=== PATIENT | female | born 1930 | race Caucasian/White ===

== ENCOUNTER 2017-05-08 17:44 | Inpatient (IN) | payer MEDICARE, OTHER ==
[~2017-05-08] VITALS: Ht 144.8 cm; Wt 65.8 kg
[~2017-05-08 17:44] MED LIST: ALBU8.5H8 INH; AMIO200T57 PO; DABI150C PO; DOXA2TAB2 PO; ERGO500056 PO; GABA-532 PO; LISI-600 PO; LORA10TA65 PO; METO25TA6 PO; PANT-47 PO; QUELT PO; SACC250C9 PO; SIMV20TA PO
[2017-05-08 19:10] LABS: HEMATOCRIT 25.6 % (35.0-45.0); HEMOGLOBIN 8.4 g/dl (12.0-16.0); MEAN CORPUSCULAR HEMOGLOBIN 28.3 PG (27.0-31.0); MEAN CORPUSCULAR VOLUME 85.8 FL (78-98); MEAN PLATELET VOLUME 6.9 FL (7.4-10.4); PLATELET COUNT 211 X10'3 (140-440); RED BLOOD COUNT 2.98 X10'6 (4.20-5.60); WHITE BLOOD COUNT 5.9 X10'3 (4.5-11.0)
[2017-05-08 19:23] LABS: INR 3.4 INR; PARTIAL THROMBOPLASTIN TIME 66 SECONDS (22-32)
[2017-05-08 19:26] LABS: ANISOCYTOSIS 1+; PLATELET ESTIMATE NORMAL; TOTAL CELLS COUNTED 100
[2017-05-08 19:27] LABS: ELLIPTOCYTES FEW; POIKILOCYTOSIS FEW; TEAR DROP CELLS FEW
[2017-05-08 19:31] LABS: CLARITY,URINE CLEAR (Clear); COLOR,URINE YELLOW (Yellow); GLUCOSE, URINE NEGATIVE (Neg); KETONES,URINE NEGATIVE (Neg); LEUKOCYTE ESTERASE ,URINE NEGATIVE (Neg); NITRITES, URINE NEGATIVE (Neg); OCCULT BLOOD,URINE NEGATIVE (Neg); PROTEIN,URINE NEGATIVE (Neg); UROBILINOGEN,URINE 0.2 E.U/dL (0.2-1.0)
[2017-05-08 19:33] LABS: UA COLLECTION TYPE STRAIGHT CATH
[2017-05-08 19:41] LABS: ALANINE AMINOTRANSFERASE 36 U/L (12-78); ALBUMIN 2.5 G/DL (3.4-5.0); ALBUMIN/GLOBULIN RATIO 0.6 (1.1-1.5); ALKALINE PHOSPHATASE 122 IU/L (46-116); ANION GAP 6 (8-16); ASPARTATE AMINO TRANSFERASE 40 U/L (10-37); BILIRUBIN,TOTAL 0.3 MG/DL (0.1-1.0); BLOOD UREA NITROGEN 62 MG/DL (7-18); BUN/CREATININE RATIO 41.1 (6.6-38.0); CALCIUM 9.4 MG/DL (8.5-10.1); CHLORIDE 99 MMOL/L (99-107); CREATININE 1.51 MG/DL (0.40-0.90); GLUCOSE 96 MG/DL (70-104); POTASSIUM 4.6 MMOL/L (3.5-5.1); SODIUM 135 MMOL/L (135-145); TOTAL CARBON DIOXIDE 29.7 MMOL/L (24-32); TOTAL PROTEIN 6.6 G/DL (6.4-8.2); eGFR 33 ML/MIN
[2017-05-08] MEDS ORDERED: normal saline 1000ml 1,000 ML IV ONE (20:15)
[2017-05-08] MEDS ORDERED: vancomycin/NS 1 GM ADD-VANTAGE 250 ML IV ONE (20:55)
[2017-05-08] MEDS: normal saline 1000ml 1,000 ML IV SCH (22:23)
[2017-05-08] MEDS ORDERED: acetaminophen 325mg tablet PO PRN (22:25)
[2017-05-08] MEDS ORDERED: ondansetron/PF 4mg/2ml inj IV PRN (22:25)
[2017-05-08] MEDS ORDERED: magnesium hydroxide 30ml (MOM) UD suspension PO PRN (22:25)
[2017-05-08] MEDS ORDERED: mag hydrox/Alum hydrox/simeth 30ml oral suspension PO PRN (22:25)
[2017-05-08] MEDS: piperacillin/tazo 3.375gm/50ml 50 ML IV SCH (22:46)
[2017-05-08] MEDS: HYDROcodone/acetaminophen 5mg/325mg tablet PO PRN (22:49)
[2017-05-08] MEDS ORDERED: gabapentin 300mg capsule PO ONE (23:30)
[2017-05-09] VITALS (12 sets, daily range): BP systolic 68–125; BP diastolic 33–65
[2017-05-09 00:01] LABS: BASOPHILS % (AUTO) 0.3 % (0-1); EOSINOPHILS # (AUTO) 0.2 X10'3 (0-0.9); EOSINOPHILS % (AUTO) 2.9 % (0-6); HEMOGLOBIN 8.2 g/dl (12.0-16.0); LYMPHOCYTES # (AUTO) 0.8 X10'3 (1.1-4.8); LYMPHOCYTES % (AUTO) 13.9 % (21-51); MEAN CORPUSCULAR HEMOGLOBIN 27.9 PG (27.0-31.0); MEAN CORPUSCULAR HGB CONC 32.9 % (33.0-36.5); MEAN CORPUSCULAR VOLUME 84.7 FL (78-98); MEAN PLATELET VOLUME 6.6 FL (7.4-10.4); MONOCYTES # (AUTO) 0.5 X10'3 (0-0.9); MONOCYTES % (AUTO) 8.4 % (2-12); NEUTROPHILS # (AUTO) 4.1 X10'3 (1.8-7.7); NEUTROPHILS % (AUTO) 74.5 % (42-75); PLATELET COUNT 202 X10'3 (140-440); RED BLOOD COUNT 2.95 X10'6 (4.20-5.60); WHITE BLOOD COUNT 5.5 X10'3 (4.5-11.0)
[2017-05-09] MEDS ORDERED: piperacillin/tazo 3.375gm/50ml 50 ML IV ONE (02:08)
[2017-05-09] MEDS: piperacillin/tazo 3.375gm/50ml 50 ML IV SCH ×4 (02:13→20:20)
[2017-05-09 05:53] LABS: BASOPHILS % (AUTO) 0.1 % (0-1); EOSINOPHILS # (AUTO) 0.1 X10'3 (0-0.9); EOSINOPHILS % (AUTO) 1.3 % (0-6); HEMATOCRIT 23.8 % (35.0-45.0); LYMPHOCYTES # (AUTO) 0.5 X10'3 (1.1-4.8); LYMPHOCYTES % (AUTO) 6.6 % (21-51); MEAN CORPUSCULAR HEMOGLOBIN 28.3 PG (27.0-31.0); MEAN CORPUSCULAR HGB CONC 33.5 % (33.0-36.5); MEAN CORPUSCULAR VOLUME 84.7 FL (78-98); MEAN PLATELET VOLUME 6.6 FL (7.4-10.4); MONOCYTES # (AUTO) 0.6 X10'3 (0-0.9); MONOCYTES % (AUTO) 7.9 % (2-12); NEUTROPHILS # (AUTO) 6.8 X10'3 (1.8-7.7); NEUTROPHILS % (AUTO) 84.1 % (42-75); PLATELET COUNT 175 X10'3 (140-440); RED BLOOD COUNT 2.81 X10'6 (4.20-5.60); RED CELL DISTRIBUTION WIDTH 16.7 % (11.5-14.5); WHITE BLOOD COUNT 8.1 X10'3 (4.5-11.0)
[2017-05-09 06:11] LABS: ALANINE AMINOTRANSFERASE 29 U/L (12-78); ALBUMIN 2.3 G/DL (3.4-5.0); ALBUMIN/GLOBULIN RATIO 0.6 (1.1-1.5); ALKALINE PHOSPHATASE 109 IU/L (46-116); ANION GAP 8 (8-16); ASPARTATE AMINO TRANSFERASE 35 U/L (10-37); BILIRUBIN,TOTAL 0.4 MG/DL (0.1-1.0); BLOOD UREA NITROGEN 61 MG/DL (7-18); CALCIUM 8.8 MG/DL (8.5-10.1); CHLORIDE 102 MMOL/L (99-107); CREATININE 1.42 MG/DL (0.40-0.90); GLUCOSE 77 MG/DL (70-104); POTASSIUM 4.4 MMOL/L (3.5-5.1); SODIUM 138 MMOL/L (135-145); TOTAL CARBON DIOXIDE 27.8 MMOL/L (24-32); TOTAL PROTEIN 5.9 G/DL (6.4-8.2); eGFR 35 ML/MIN
[2017-05-09] MEDS ORDERED: metoprolol tartrate 25mg tablet PO SCH (08:00)
[2017-05-09] MEDS: gabapentin 300mg capsule PO SCH ×2 (10:06→20:20)
[2017-05-09] MEDS: pantoprazole 40mg Tablet.DR PO SCH ×2 (10:06→20:20)
[2017-05-09] MEDS: HYDROcodone/acetaminophen 5mg/325mg tablet PO PRN (11:16)
[2017-05-09] MEDS: normal saline 1000ml 1,000 ML IV SCH (14:32)
[2017-05-09] MEDS ORDERED: naloxone 0.4 mg/ml inj IV ONE (15:45)
[2017-05-09] MEDS ORDERED: naloxone 0.4 mg/ml inj ONE (15:46)
[2017-05-09] MEDS ORDERED: normal saline 500ml IV soln 500 ML IV ONE ×2 (16:25→18:05)
[2017-05-09 16:31] LABS: ABG BASE EXCESS -3.2 mmol/L (-2.0-3.0); ABG HCO3 24.1 mmol/L (22.0-26.0); ABG OXYGEN SATURATION 88.5 % (95-98); ABG PCO2 (T) 55.6 mmHg (32.0-45.0); ABG PH (T) 7.254 (7.350-7.450); ABG PO2 (T) 64.8 mmHg (83-108); ALLEN'S TEST Positive; FCOHb 0.3 % (0.5-1.5); FMetHb 0.3 % (0.3-1.12); TOTAL HEMOGLOBIN 8.3 G/dl (12.0-16.0)
[2017-05-09] MEDS: lactobacillus rhamnosus 10,000 MMU CELLS/CAPSULE PO SCH (17:04)
[2017-05-09] MEDS ORDERED: naloxone 0.4 mg/ml inj IV STA (17:43)
[2017-05-09 19:47] LABS: BASOPHILS % (AUTO) 0.3 % (0-1); EOSINOPHILS # (AUTO) 0.1 X10'3 (0-0.9); HEMOGLOBIN 7.1 g/dl (12.0-16.0); LYMPHOCYTES # (AUTO) 0.8 X10'3 (1.1-4.8); LYMPHOCYTES % (AUTO) 8.8 % (21-51); MEAN CORPUSCULAR HEMOGLOBIN 28.3 PG (27.0-31.0); MEAN CORPUSCULAR HGB CONC 32.6 % (33.0-36.5); MEAN CORPUSCULAR VOLUME 86.7 FL (78-98); MEAN PLATELET VOLUME 6.9 FL (7.4-10.4); MONOCYTES # (AUTO) 0.6 X10'3 (0-0.9); NEUTROPHILS # (AUTO) 7.2 X10'3 (1.8-7.7); NEUTROPHILS % (AUTO) 82.9 % (42-75); PLATELET COUNT 148 X10'3 (140-440); RED BLOOD COUNT 2.51 X10'6 (4.20-5.60); WHITE BLOOD COUNT 8.6 X10'3 (4.5-11.0)
[2017-05-09 19:52] LABS: HEMATOCRIT 21.8 % (35.0-45.0)
[2017-05-09 19:59] LABS: ALBUMIN 1.9 G/DL (3.4-5.0); ANION GAP 6 (8-16); BLOOD UREA NITROGEN 48 MG/DL (7-18); BUN/CREATININE RATIO 35.3 (6.6-38.0); CALCIUM 8.2 MG/DL (8.5-10.1); CHLORIDE 105 MMOL/L (99-107); CREATININE 1.36 MG/DL (0.40-0.90); GLUCOSE 80 MG/DL (70-104); PHOSPHORUS 4.2 MG/DL (2.3-4.5); POTASSIUM 4.2 MMOL/L (3.5-5.1); SODIUM 138 MMOL/L (135-145); TOTAL CARBON DIOXIDE 26.9 MMOL/L (24-32); eGFR 37 ML/MIN
[2017-05-09 20:00] LABS: INR 1.9 INR; PARTIAL THROMBOPLASTIN TIME 66 SECONDS (22-32); PROTHROMBIN TIME 18.8 SECONDS (9.0-12.0)
[2017-05-09] MEDS: metoprolol tartrate 25mg tablet PO SCH (20:00)
[2017-05-09] MEDS ORDERED: albumin (Human) 5% 250 ML IV solution IV STA (22:22)
[2017-05-09] MEDS ORDERED: albumin (Human) 5% 250ml 500 ML IV ONE (22:23)
[2017-05-09] MEDS ORDERED: NORepinephrine 8mg/ 250ml NS 250 ML IV ONE (22:52)
[2017-05-09] MEDS ORDERED: NORepinephrine 8mg/ 250ml NS 250 ML IV PRN (23:08)
[2017-05-09] MEDS: vancomycin/NS 1 GM ADD-VANTAGE 250 ML IV SCH (23:28)
[2017-05-10] VITALS (27 sets, daily range): BP systolic 85–144; BP diastolic 44–105
[2017-05-10] MEDS ORDERED: hydrocortisone sod succ/PF 250mg/2ml inj. IV ONE (01:20)
[2017-05-10] MEDS: piperacillin/tazo 3.375gm/50ml 50 ML IV SCH ×4 (03:25→19:30)
[2017-05-10] MEDS: acetaminophen 325mg tablet PO PRN (04:21)
[2017-05-10 05:54] LABS: BASOPHILS % (AUTO) 0.4 % (0-1); EOSINOPHILS % (AUTO) 0.2 % (0-6); HEMATOCRIT 28.1 % (35.0-45.0); HEMOGLOBIN 9.3 g/dl (12.0-16.0); LYMPHOCYTES # (AUTO) 0.6 X10'3 (1.1-4.8); LYMPHOCYTES % (AUTO) 6.4 % (21-51); MEAN CORPUSCULAR HEMOGLOBIN 28.4 PG (27.0-31.0); MEAN CORPUSCULAR HGB CONC 33.1 % (33.0-36.5); MEAN CORPUSCULAR VOLUME 85.8 FL (78-98); MONOCYTES # (AUTO) 0.7 X10'3 (0-0.9); MONOCYTES % (AUTO) 7.2 % (2-12); NEUTROPHILS # (AUTO) 8.1 X10'3 (1.8-7.7); NEUTROPHILS % (AUTO) 85.8 % (42-75); PLATELET COUNT 142 X10'3 (140-440); RED BLOOD COUNT 3.27 X10'6 (4.20-5.60); RED CELL DISTRIBUTION WIDTH 16.5 % (11.5-14.5); WHITE BLOOD COUNT 9.4 X10'3 (4.5-11.0)
[2017-05-10 06:10] LABS: ALANINE AMINOTRANSFERASE 26 U/L (12-78); ALBUMIN 2.4 G/DL (3.4-5.0); ALBUMIN/GLOBULIN RATIO 0.7 (1.1-1.5); ALKALINE PHOSPHATASE 88 IU/L (46-116); ANION GAP 6 (8-16); ASPARTATE AMINO TRANSFERASE 35 U/L (10-37); BILIRUBIN,TOTAL 1.5 MG/DL (0.1-1.0); BLOOD UREA NITROGEN 42 MG/DL (7-18); BUN/CREATININE RATIO 33.1 (6.6-38.0); CALCIUM 8.5 MG/DL (8.5-10.1); CHLORIDE 108 MMOL/L (99-107); CREATININE 1.27 MG/DL (0.40-0.90); GLUCOSE 85 MG/DL (70-104); SODIUM 140 MMOL/L (135-145); TOTAL CARBON DIOXIDE 26.5 MMOL/L (24-32); TOTAL PROTEIN 5.8 G/DL (6.4-8.2); eGFR 40 ML/MIN
[2017-05-10] MEDS: pantoprazole 40mg Tablet.DR PO SCH ×3 (07:20→19:30)
[2017-05-10] MEDS: lactobacillus rhamnosus 10,000 MMU CELLS/CAPSULE PO SCH ×3 (07:20→17:30)
[2017-05-10] MEDS: gabapentin 300mg capsule PO SCH ×3 (07:21→19:30)
[2017-05-10] MEDS: normal saline 1000ml 1,000 ML IV SCH (07:43)
[2017-05-10] MEDS: metoprolol tartrate 25mg tablet PO SCH ×2 (08:00→19:30)
[2017-05-10] MEDS: LACTOSE-FREE FOOD (BOOST BREEZE) 237ML PO SCH ×2 (13:00→18:00)
[2017-05-10] MEDS: vancomycin/NS 1 GM ADD-VANTAGE 250 ML IV SCH (22:56)
[2017-05-11] VITALS (24 sets, daily range): BP systolic 98–161; BP diastolic 44–92
[2017-05-11] MEDS: piperacillin/tazo 3.375gm/50ml 50 ML IV SCH ×4 (02:24→20:45)
[2017-05-11] MEDS: normal saline 1000ml 1,000 ML IV SCH ×2 (02:24→13:20)
[2017-05-11 05:24] LABS: BASOPHILS % (AUTO) 0.2 % (0-1); EOSINOPHILS # (AUTO) 0.1 X10'3 (0-0.9); EOSINOPHILS % (AUTO) 1.7 % (0-6); HEMATOCRIT 29.7 % (35.0-45.0); HEMOGLOBIN 9.8 g/dl (12.0-16.0); LYMPHOCYTES # (AUTO) 0.8 X10'3 (1.1-4.8); LYMPHOCYTES % (AUTO) 10.7 % (21-51); MEAN CORPUSCULAR HEMOGLOBIN 28.2 PG (27.0-31.0); MEAN CORPUSCULAR HGB CONC 32.9 % (33.0-36.5); MEAN CORPUSCULAR VOLUME 85.9 FL (78-98); MEAN PLATELET VOLUME 6.9 FL (7.4-10.4); MONOCYTES # (AUTO) 0.6 X10'3 (0-0.9); MONOCYTES % (AUTO) 7.5 % (2-12); NEUTROPHILS # (AUTO) 6.3 X10'3 (1.8-7.7); NEUTROPHILS % (AUTO) 79.9 % (42-75); PLATELET COUNT 160 X10'3 (140-440); RED BLOOD COUNT 3.46 X10'6 (4.20-5.60); RED CELL DISTRIBUTION WIDTH 17.4 % (11.5-14.5); WHITE BLOOD COUNT 7.9 X10'3 (4.5-11.0)
[2017-05-11 05:55] LABS: ALANINE AMINOTRANSFERASE 31 U/L (12-78); ALBUMIN 2.3 G/DL (3.4-5.0); ALBUMIN/GLOBULIN RATIO 0.6 (1.1-1.5); ALKALINE PHOSPHATASE 72 IU/L (46-116); ANION GAP 8 (8-16); ASPARTATE AMINO TRANSFERASE 27 U/L (10-37); BILIRUBIN,TOTAL 0.6 MG/DL (0.1-1.0); BLOOD UREA NITROGEN 33 MG/DL (7-18); BUN/CREATININE RATIO 26.4 (6.6-38.0); CALCIUM 8.9 MG/DL (8.5-10.1); CHLORIDE 108 MMOL/L (99-107); CREATININE 1.25 MG/DL (0.40-0.90); GLUCOSE 71 MG/DL (70-104); POTASSIUM 3.8 MMOL/L (3.5-5.1); SODIUM 144 MMOL/L (135-145); TOTAL CARBON DIOXIDE 27.6 MMOL/L (24-32); eGFR 41 ML/MIN
[2017-05-11] MEDS: lactobacillus rhamnosus 10,000 MMU CELLS/CAPSULE PO SCH ×2 (07:30→16:02)
[2017-05-11] MEDS: metoprolol tartrate 25mg tablet PO SCH ×2 (07:39→20:44)
[2017-05-11] MEDS: pantoprazole 40mg Tablet.DR PO SCH ×2 (07:39→20:44)
[2017-05-11] MEDS: gabapentin 300mg capsule PO SCH ×2 (07:39→20:44)
[2017-05-11] MEDS: LACTOSE-FREE FOOD (BOOST BREEZE) 237ML PO SCH ×3 (08:00→20:45)
[2017-05-11] MEDS: acetaminophen 325mg tablet PO PRN (09:38)
[2017-05-11] MEDS: albuterol 2.5 MG/3 ML nebule NEB PRN ×3 (11:52→22:20)
[2017-05-11] MEDS: multivitamin oral liquid (Certavite) 5ml cup PO SCH (13:19)
[2017-05-11 14:35] LABS: % IRON SATURATION 15 % (11-46); IRON 37 UG/DL (49-151); TOTAL IRON BINDING CAPACITY 241 UG/DL (259-388)
[2017-05-11] MEDS ORDERED: VANCOMYCIN LEVEL IV ONE (22:30)
[2017-05-11] MEDS: vancomycin/NS 1 GM ADD-VANTAGE 250 ML IV SCH (23:55)
[2017-05-12] VITALS (24 sets, daily range): BP systolic 107–159; BP diastolic 52–94
[2017-05-12] MEDS: piperacillin/tazo 3.375gm/50ml 50 ML IV SCH ×3 (02:47→13:19)
[2017-05-12 05:27] LABS: BASOPHILS # (AUTO) 0.1 X10'3 (0-0.2); BASOPHILS % (AUTO) 0.7 % (0-1); EOSINOPHILS # (AUTO) 0.2 X10'3 (0-0.9); EOSINOPHILS % (AUTO) 3.2 % (0-6); HEMATOCRIT 29.8 % (35.0-45.0); HEMOGLOBIN 9.7 g/dl (12.0-16.0); LYMPHOCYTES # (AUTO) 0.8 X10'3 (1.1-4.8); MEAN CORPUSCULAR HEMOGLOBIN 28.1 PG (27.0-31.0); MEAN CORPUSCULAR HGB CONC 32.7 % (33.0-36.5); MEAN PLATELET VOLUME 6.7 FL (7.4-10.4); MONOCYTES # (AUTO) 0.5 X10'3 (0-0.9); NEUTROPHILS # (AUTO) 5.7 X10'3 (1.8-7.7); NEUTROPHILS % (AUTO) 78.1 % (42-75); PLATELET COUNT 154 X10'3 (140-440); RED BLOOD COUNT 3.46 X10'6 (4.20-5.60); RED CELL DISTRIBUTION WIDTH 17.4 % (11.5-14.5); WHITE BLOOD COUNT 7.4 X10'3 (4.5-11.0)
[2017-05-12 06:20] LABS: ALANINE AMINOTRANSFERASE 25 U/L (12-78); ALBUMIN 2.1 G/DL (3.4-5.0); ALBUMIN/GLOBULIN RATIO 0.5 (1.1-1.5); ALKALINE PHOSPHATASE 66 IU/L (46-116); ANION GAP 8 (8-16); ASPARTATE AMINO TRANSFERASE 22 U/L (10-37); BILIRUBIN,TOTAL 0.4 MG/DL (0.1-1.0); BLOOD UREA NITROGEN 29 MG/DL (7-18); BUN/CREATININE RATIO 19.9 (6.6-38.0); CALCIUM 8.9 MG/DL (8.5-10.1); CHLORIDE 109 MMOL/L (99-107); CREATININE 1.46 MG/DL (0.40-0.90); GLUCOSE 104 MG/DL (70-104); POTASSIUM 3.5 MMOL/L (3.5-5.1); SODIUM 144 MMOL/L (135-145); TOTAL CARBON DIOXIDE 27.1 MMOL/L (24-32); TOTAL PROTEIN 6.1 G/DL (6.4-8.2); eGFR 34 ML/MIN
[2017-05-12] MEDS: lactobacillus rhamnosus 10,000 MMU CELLS/CAPSULE PO SCH ×2 (07:46→17:30)
[2017-05-12] MEDS: gabapentin 300mg capsule PO SCH ×2 (07:46→21:18)
[2017-05-12] MEDS: metoprolol tartrate 25mg tablet PO SCH ×2 (07:47→21:17)
[2017-05-12] MEDS: pantoprazole 40mg Tablet.DR PO SCH ×2 (07:48→21:18)
[2017-05-12] MEDS: multivitamin oral liquid (Certavite) 5ml cup PO SCH (07:54)
[2017-05-12] MEDS: acetaminophen 325mg tablet PO PRN (07:54)
[2017-05-12] MEDS: LACTOSE-FREE FOOD (BOOST BREEZE) 237ML PO SCH ×3 (08:00→18:51)
[2017-05-12] MEDS: albuterol 2.5 MG/3 ML nebule NEB PRN (09:59)
[2017-05-12] MEDS ORDERED: furosemide 10 MG/1 ML 10ml inj IV ONE (11:15)
[2017-05-12] MEDS: sodium ferric gluc complex inj 125 MG in normal saline 100ml IV soln 100 ML IV SCH (11:51)
[2017-05-12] MEDS: ipratropium/albuterol 3ml nebule NEB SCH ×3 (15:06→23:00)
[2017-05-12 20:45] LABS: MAGNESIUM 1.5 MG/DL (1.5-2.4); PHOSPHORUS 3.2 MG/DL (2.3-4.5); POTASSIUM 3.3 MMOL/L (3.5-5.1)
[2017-05-12] MEDS ORDERED: potassium Cl 20 mEq SR tablet PO PRN ×2 (20:55)
[2017-05-12] MEDS ORDERED: potassium Cl 40MEQ/NS 500ml 500 ML IV PRN ×2 (20:55)
[2017-05-12] MEDS: piperacillin-tazo 2.25gm/50ml 50 ML IV SCH (21:18)
[2017-05-12] MEDS: enoxaparin 60mg/0.6ml syringe SUBCUT SCH (21:19)
[2017-05-12] MEDS: vancomycin/NS 1 GM ADD-VANTAGE 250 ML IV SCH (23:12)
[2017-05-13] VITALS (24 sets, daily range): BP systolic 116–159; BP diastolic 52–87
[2017-05-13] MEDS: piperacillin-tazo 2.25gm/50ml 50 ML IV SCH ×4 (02:03→19:29)
[2017-05-13] MEDS: ipratropium/albuterol 3ml nebule NEB SCH ×6 (03:12→23:00)
[2017-05-13 06:21] LABS: BASOPHILS % (AUTO) 0.4 % (0-1); EOSINOPHILS # (AUTO) 0.2 X10'3 (0-0.9); EOSINOPHILS % (AUTO) 3.5 % (0-6); HEMATOCRIT 29.2 % (35.0-45.0); HEMOGLOBIN 9.8 g/dl (12.0-16.0); LYMPHOCYTES # (AUTO) 0.7 X10'3 (1.1-4.8); LYMPHOCYTES % (AUTO) 10.4 % (21-51); MEAN CORPUSCULAR HEMOGLOBIN 28.3 PG (27.0-31.0); MEAN CORPUSCULAR HGB CONC 33.6 % (33.0-36.5); MEAN CORPUSCULAR VOLUME 84.3 FL (78-98); MEAN PLATELET VOLUME 6.7 FL (7.4-10.4); MONOCYTES # (AUTO) 0.5 X10'3 (0-0.9); MONOCYTES % (AUTO) 8.1 % (2-12); NEUTROPHILS # (AUTO) 5.2 X10'3 (1.8-7.7); NEUTROPHILS % (AUTO) 77.6 % (42-75); PLATELET COUNT 142 X10'3 (140-440); RED BLOOD COUNT 3.46 X10'6 (4.20-5.60); RED CELL DISTRIBUTION WIDTH 17.2 % (11.5-14.5); WHITE BLOOD COUNT 6.7 X10'3 (4.5-11.0)
[2017-05-13 07:01] LABS: ALANINE AMINOTRANSFERASE 30 U/L (12-78); ALBUMIN 2.1 G/DL (3.4-5.0); ALBUMIN/GLOBULIN RATIO 0.5 (1.1-1.5); ALKALINE PHOSPHATASE 70 IU/L (46-116); ANION GAP 9 (8-16); ASPARTATE AMINO TRANSFERASE 21 U/L (10-37); BILIRUBIN,TOTAL 0.7 MG/DL (0.1-1.0); BLOOD UREA NITROGEN 21 MG/DL (7-18); BUN/CREATININE RATIO 16.2 (6.6-38.0); CALCIUM 8.9 MG/DL (8.5-10.1); CHLORIDE 107 MMOL/L (99-107); GLUCOSE 94 MG/DL (70-104); POTASSIUM 3.4 MMOL/L (3.5-5.1); SODIUM 146 MMOL/L (135-145); eGFR 39 ML/MIN
[2017-05-13] MEDS: pantoprazole 40mg Tablet.DR PO SCH ×2 (08:06→19:27)
[2017-05-13] MEDS: gabapentin 300mg capsule PO SCH ×2 (08:06→19:27)
[2017-05-13] MEDS: multivitamin oral liquid (Certavite) 5ml cup PO SCH (08:07)
[2017-05-13] MEDS: lactobacillus rhamnosus 10,000 MMU CELLS/CAPSULE PO SCH ×2 (08:07→17:41)
[2017-05-13] MEDS: metoprolol tartrate 25mg tablet PO SCH ×2 (08:07→19:27)
[2017-05-13] MEDS: LACTOSE-FREE FOOD (BOOST BREEZE) 237ML PO SCH ×3 (08:07→18:00)
[2017-05-13] MEDS: sodium ferric gluc complex inj 125 MG in normal saline 100ml IV soln 100 ML IV SCH (09:52)
[2017-05-13] MEDS ORDERED: furosemide 40mg/4ml inj IV ONE (15:00)
[2017-05-13] MEDS: LACTOSE-FREE FOOD 237ML (BOOST) PO SCH (18:50)
[2017-05-13] MEDS: enoxaparin 60mg/0.6ml syringe SUBCUT SCH (19:28)
[2017-05-13] MEDS: vancomycin/NS 1 GM ADD-VANTAGE 250 ML IV SCH (23:25)
[2017-05-14] VITALS (17 sets, daily range): BP systolic 129–161; BP diastolic 71–96
[2017-05-14] MEDS: piperacillin-tazo 2.25gm/50ml 50 ML IV SCH ×3 (01:21→14:52)
[2017-05-14] MEDS: ipratropium/albuterol 3ml nebule NEB SCH ×4 (03:00→15:56)
[2017-05-14 06:21] LABS: BASOPHILS % (AUTO) 0.4 % (0-1); EOSINOPHILS # (AUTO) 0.3 X10'3 (0-0.9); HEMATOCRIT 30.4 % (35.0-45.0); HEMOGLOBIN 10.1 g/dl (12.0-16.0); LYMPHOCYTES # (AUTO) 0.8 X10'3 (1.1-4.8); LYMPHOCYTES % (AUTO) 11.6 % (21-51); MEAN CORPUSCULAR HEMOGLOBIN 28.2 PG (27.0-31.0); MEAN CORPUSCULAR HGB CONC 33.4 % (33.0-36.5); MEAN CORPUSCULAR VOLUME 84.5 FL (78-98); MEAN PLATELET VOLUME 6.6 FL (7.4-10.4); MONOCYTES # (AUTO) 0.6 X10'3 (0-0.9); MONOCYTES % (AUTO) 8.6 % (2-12); NEUTROPHILS # (AUTO) 5.2 X10'3 (1.8-7.7); NEUTROPHILS % (AUTO) 75.4 % (42-75); PLATELET COUNT 146 X10'3 (140-440); RED CELL DISTRIBUTION WIDTH 17.6 % (11.5-14.5); WHITE BLOOD COUNT 6.9 X10'3 (4.5-11.0)
[2017-05-14 06:39] LABS: ALANINE AMINOTRANSFERASE 29 U/L (12-78); ALBUMIN 2.1 G/DL (3.4-5.0); ALBUMIN/GLOBULIN RATIO 0.5 (1.1-1.5); ALKALINE PHOSPHATASE 79 IU/L (46-116); ANION GAP 10 (8-16); ASPARTATE AMINO TRANSFERASE 32 U/L (10-37); BILIRUBIN,TOTAL 0.7 MG/DL (0.1-1.0); BLOOD UREA NITROGEN 19 MG/DL (7-18); BUN/CREATININE RATIO 16.7 (6.6-38.0); CHLORIDE 106 MMOL/L (99-107); CREATININE 1.14 MG/DL (0.40-0.90); GLUCOSE 94 MG/DL (70-104); MAGNESIUM 1.2 MG/DL (1.5-2.4); PHOSPHORUS 2.9 MG/DL (2.3-4.5); POTASSIUM 3.8 MMOL/L (3.5-5.1); SODIUM 148 MMOL/L (135-145); TOTAL CARBON DIOXIDE 32.1 MMOL/L (24-32); TOTAL PROTEIN 6.3 G/DL (6.4-8.2); eGFR 45 ML/MIN
[2017-05-14] MEDS: pantoprazole 40mg Tablet.DR PO SCH (07:27)
[2017-05-14] MEDS: metoprolol tartrate 25mg tablet PO SCH (07:27)
[2017-05-14] MEDS: lactobacillus rhamnosus 10,000 MMU CELLS/CAPSULE PO SCH (07:27)
[2017-05-14] MEDS: gabapentin 300mg capsule PO SCH (07:27)
[2017-05-14] MEDS: multivitamin oral liquid (Certavite) 5ml cup PO SCH (07:28)
[2017-05-14] MEDS: LACTOSE-FREE FOOD (BOOST BREEZE) 237ML PO SCH ×2 (08:00→12:52)
[2017-05-14] MEDS: sodium ferric gluc complex inj 125 MG in normal saline 100ml IV soln 100 ML IV SCH (08:35)
[2017-05-14] MEDS: LACTOSE-FREE FOOD 237ML (BOOST) PO SCH ×2 (08:36→13:00)
[2017-05-14] MEDS ORDERED: magnesium 2GM in 50ml NS 50 ML IV PRN (10:45)
[2017-05-14] MEDS ORDERED: magnesium Cl slow-release 64mg tablet PO PRN (10:45)
[2017-05-14] MEDS ORDERED: magnesium 4gm in 100ml NS 100 ML IV PRN (10:45)
== END 2017-05-14 17:00 | DRG 871 ==
LOC: ER 17:46 → ED HOLD 22:23 → EDBEDREQ 23:35 → MED 3N 05-09 01:00 → ICU 2S 05-09 21:24
PROVIDERS: ADMIT Internal Medicine
PROC: 30233N1 Transfusion of Nonautologous Red Blood Cells into Peripheral Vein, Percutaneous Approach (ICD-10-PCS; principal; 2017-05-09)
PROC: 30233N1 Transfusion of Nonautologous Red Blood Cells into Peripheral Vein, Percutaneous Approach (ICD-10-PCS; 2017-05-10)
DX: A41.9 Sepsis, unspecified organism (principal); G92 Toxic encephalopathy; N17.9 Acute kidney failure, unspecified; E87.70 Fluid overload, unspecified; T68.XXXA Hypothermia, initial encounter; I48.2 Chronic atrial fibrillation; E86.0 Dehydration; D64.9 Anemia, unspecified; L97.819 Non-pressure chronic ulcer of other part of right lower leg with unspecified severity; L97.829 Non-pressure chronic ulcer of other part of left lower leg with unspecified severity; G89.29 Other chronic pain; I12.9 Hypertensive chronic kidney disease with stage 1 through stage 4 chronic kidney disease, or unspecified chronic kidney disease; N18.9 Chronic kidney disease, unspecified; R29.6 Repeated falls; M54.9 Dorsalgia, unspecified; Z60.2 Problems related to living alone; Z98.51 Tubal ligation status; Z88.8 Allergy status to other drugs, medicaments and biological substances; Z79.899 Other long term (current) drug therapy; Z79.01 Long term (current) use of anticoagulants
CPT/HCPCS: 36415; 36600; 70450; 71045; 72125; 72170; 80048; 80053; 80202; 81003; 82140; 82803; 82948; 83540; 83550; 83605; 83735; 83880; 84100; 84132; 84145; 84443; 84484; 85007; 85018; 85025; 85027; 85610; 85730; 86885; 86900; 86901; 86920; 87040; 87070; 92616; 94640; 94668; 94760; 97161; 97530; 99285; A4310; A4353; A6212; A6213; A6222; A6223; A6253; A6255; A6446; A6449; C1758; J1650; J1720; J1940; J2310; J2405; J2543; J2916; J3370; J3475; J3480; J7030; L0172; P9016; P9045